=== PATIENT | female | born 1950 | race Caucasian/White ===

== ENCOUNTER 2024-07-04 14:47 | Emergency (ER) | payer MEDICARE ==
[~2024-07-04] VITALS: Ht 170.2 cm; Wt 104.5 kg
[2024-07-04 14:56] VITALS: TEMP 97
--- NOTE | 2024-07-04 15:12 | ELECTROCARDIOGRAPH REPORT ---
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 Jacques Ac Measurements Intervals [place] Rate: 105 P: 71 CA: 162 QRS: 70 QRSD: 101 T: 225 QT: 300 QTc: 397 Interpretive Statements Sinus tachycardia Repol abnrm, severe global ischemia (LM/MVD) Baseline wander in lead(s) II,V3 Electronically Signed On 07-04-2024 15:20:[address] Jacques Ac Please click the below link to view image of tracing.
--- NOTE | 2024-07-04 15:24 | RADIOLOGY REPORT ---
Nondiagnostic chest radiograph. Images are severely overpenetrated.
--- NOTE | 2024-07-04 18:00 | Physician Documentation ---
History of Present Illness ~ Chief Complaint: Cold, cough & congestion Stated Complaint: COLD SYMPTOMS Time Seen by MD: 16:42 OK to notify your PCP?: Yes Source: patient Mode of Arrival: POV, Dropped Off Exam Limitations: no limitations HPI This is a 71-year-old female who comes in complaining of cough with a wheezing or shortness of breath. She says she does not smoke and does not have a history of COPD. She was had low-grade fevers around 99.1. The generalized body aches or chills. She states she was coughing up greenish-yellow sputum. She does have a history of asthma. She denies chest pain. Medication Reconciliation Allergies: Coded Allergies: hydromorphone (Unverified Allergy, Severe, HIVES, 07/04/24) acetaminophen (Unverified Allergy, Unknown, RASH, 07/04/24) ciprofloxacin (Unverified Allergy, Unknown, HIVES, 07/04/24) hydrocodone (Unverified Allergy, Unknown, RASH, 07/04/24) morphine (Unverified Allergy, Unknown, RASH, ITCHING, 07/04/24) oxycodone (Unverified Allergy, Unknown, 07/04/24) Physical Exam Vital Signs: Temperature: 97.0, Source: Temporal, Heart Rate: 90, Respiratory Rate: 20, BP: 174/114, Pulse Oximetry: 93, Weight: 104.550 Oxygen Flow Rate: 0 Pulse Oximetry Reflects: adequate oxygenation General Appearance: alert, WD/WN, no apparent distress Respiratory No accessory muscle use or retractions. The patient has inspiratory and expiratory wheezes in all motley. No crackles or rales Cardiovascular No rubs, gallops or murmurs. No peripheral edema, cyanosis or clubbing of the extremities Skin: normal color, warm/dry Progress Results/Orders Reviewed/noted all lab results: Yes Results/Orders Completed Orders - BUDDY HUMPHREY Ipratropium/Albuterol Nebule (Ipratrop/A (07/04/24 17:55) Dexamethasone Inj (Decadron 10mg/Ml Inj) (07/04/24 17:55) Albuterol 2.5mg/3ml Nebule (Proventil 2. (07/04/24 19:10) Medications Received in ER Medications (Trade) Dose Ordered Sig/[place] Route PRN Reason Start Time Stop Time Status Last Admin Dose Admin (ipratrop/ albuterol 0.5-3(2.5) MG/3ml nebule) 3 ml ONCE ONCE NEB 07/04/24 17:55 07/04/24 17:56 DC 07/04/24 18:56 3 ML (Decadron 10mg/ ml inj) 10 mg ONCE ONCE IM 07/04/24 17:55 07/04/24 17:56 DC 07/04/24 18:56 10 MG (Proventil 2.5 MG/3ML nebule) 5 mg ONCE ONCE CONTNEB 07/04/24 19:10 07/04/24 19:13 DC 07/04/24 20:14 5 MG Vital Signs 07/04/24 07/04/24 07/04/24 07/04/24 14:56 16:17 16:21 17:32 Temp 97.0 Pulse 101 97 90 Resp 18 18 18 20 B/P (MAP) 170/101 178/107 (130) 174/114 (134) Pulse Ox 95 95 93 O2 Flow Rate 0 0 0 07/04/24 07/04/24 07/04/24 07/04/24 18:58 19:03 20:15 20:22 Pulse 96 96 98 101 Resp 16 15 18 16 Pulse Ox 92 97 92 97 O2 Delivery Room Air* Room Air* Room Air* Room Air* O2 Flow Rate 0 0 0 0 FiO2 21 21 21 21 EKG/XRAY/CT/US/VASC/MRI Chest X-Ray : Interpreted By: self Additional Comments Chest x-ray one view interpreted me: Borderline cardiomegaly. No acute disease process. No bony abnormalities. Soft tissues are unremarkable. Medical Decision Making Findings I gave the patient Decadron 10 mg and a DuoNeb after which she was sent a little bit better but was still wheezing pretty good. I gave her a 5 mg continuous albuterol breathing treatment after which the patient states she feels much better and she was much improved. She was eager to be discharged home and I we are going to discharge her home with a prescription for prednisone 60 mg once a day for the next four days and an albuterol inhaler. I will also place her on a Z-Jacob. She was to follow up with the primary care physician for recheck in the next one or two days and return to the ER for any worsening or concerning sy mptoms. Differential Diagnosis Upper respiratory tract infection. Asthma exacerbation. Pneumonia. COVID. Influenza. RSV. Departure Disposition: HOME / SELF CARE / HOMELESS Impression: Primary Impression: Asthma exacerbation Condition: Stable Discharge Instructions: Asthma, Adult Additional Instructions: Take the medications as prescribed. Follow up with the primary care physician for recheck in the next one or two days and return to the ER for any worsening or concerning symptoms. Referrals: NO PRIMARY CARE PROVIDER (PCP) Prescriptions Prednisone* (Prednisone*) 20 Mg Tablet 3 TAB PO DAILY for 4 Days, #12 TAB Prov: BUDDY HUMPHREY 07/04/24 albuterol inhaler (Pro-Air Inhaler) 8.5 Gm Inhaler 2 PUFFS INH Q4HPRN PRN for wheezing for 30 Days, #18 GM Prov: BUDDY HUMPHREY 07/04/24 Signature Scribe Signature: No scribe Attestation: The note accurately reflects work and decisions made by me.Buddy PANTOJA 07/04/24 20:31 BUDDY HUMPHREY Jul 04, 2024 18:00
[2024-07-04] MEDS: dexamethasone sod phosphate 10mg/ml inj IM ONE (18:56)
[2024-07-04] MEDS: ipratropium/albuterol 3ml nebule NEB ONE (18:56)
[2024-07-04 18:58] VITALS: PULSE 96; RESP 16; O2SAT 92
[2024-07-04 19:03] VITALS: PULSE 96; RESP 15; O2SAT 97
[2024-07-04] MEDS: albuterol 2.5 MG/3 ML nebule CONTNEB ONE (20:14)
[2024-07-04 20:15] VITALS: PULSE 98; RESP 18; O2SAT 92
[2024-07-04 20:22] VITALS: PULSE 101; RESP 16; O2SAT 97
[2024-07-04] MEDS ORDERED: PRED20TA PO (20:31)
[2024-07-04] MEDS ORDERED: ALBU8HFA INH (20:31)
[2024-07-04 20:38] VITALS: BP 164/90; PULSE 96; RESP 18; O2SAT 98
== END 2024-07-04 20:40 | disposition home or self-care (01) ==
LOC: ER 14:48
DX: J45.901 Unspecified asthma with (acute) exacerbation (principal); Z88.1 Allergy status to other antibiotic agents; Z88.5 Allergy status to narcotic agent
CPT/HCPCS: 71046; 93005; 94644; 96372; 99285; J1100; 94640; 94760